=== PATIENT | male | born 1965 | race Caucasian/White ===

== ENCOUNTER 2016-06-12 19:07 | Emergency (ER) | payer OTHER ==
[~2016-06-12] VITALS: Ht 177.8 cm; Wt 101.0 kg
[~2016-06-12 19:07] MED LIST: ATOR20TA38 PO; BENZ100C70 PO; DOXY100T20 PO; FLUT16SP17 NASAL; LORA-407 PO; NAPR-688 PO
[2016-06-12 19:38] VITALS: Ht 177.8 cm; Wt 101.0 kg
[2016-06-12] MEDS ORDERED: IBUPROFEN 600 MG TAB PO ONE (20:30)
--- NOTE | 2016-06-12 20:44 | ERD ---
ER Documentation Chief Complaint Date/Time DATE: 06/12/16 TIME: 20:29 Chief Complaint Leg pain x8 days HPI 50-year-old male presents with chief complaint of right calf pain 3 days. Patient states that he suffered a knee injury at work 2 weeks ago, knee pain subsided he has since noticed intermittent pain in calf aggravated by walking. He denies swelling, erythema, fever, shortness of breath, back pain, limitations in range of motion and trauma. Denies recent travel. He is a non- smoker. He has been taking ibuprofen with relief. Currently rates his pain a 4 out of 10 in severity. ROS All systems reviewed and are negative except as per history of present illness. Medications Home Meds Active Scripts Ibuprofen* (Motrin*) 600 Mg Tab, 600 MG PO Q6, #30 TAB Prov:Astrid Vaca PA-C 06/12/16 Naproxen* (Naproxen*) 500 Mg Tablet, 500 MG PO BID, #20 TAB Prov:MINI BENZ DO 10/11/15 Benzonatate* (Tessalon Perle*) 100 Mg Capsule, 100 MG PO Q8H Y for COUGH, #20 CAP Prov:MINI BENZ DO 10/11/15 Doxycycline Hyclate* (Doxycycline Hyclate*) 100 Mg Tablet.dr, 100 MG PO BID for 10 Days, TAB Prov:MINI BENZ DO 10/11/15 Reported Medications Fluticasone Propionate* (Fluticasone Propionate* Nasal) 50 Mcg/[place] - 16 Gm [place].susp, 1 SPRAY NASAL DAILY, #1 BOTTLE TO EACH NOSTRIL 10/11/15 Atorvastatin Calcium* (Atorvastatin Calcium*) 20 Mg Tablet, 20 MG PO QHS, #30 TAB 10/11/15 Loratadine (Claritin) 10 Mg Tablet, 10 MG PO DAILY 07/05/10 Allergies Allergies: Coded Allergies: No Known Drug Allergies (Verified Allergy, Mild, 10/11/15) PMhx/Soc History of Surgery: Yes (appendectomy) Hx Neurological Disorder: No Hx Respiratory Disorders: No Hx Cardiac Disorders: No Hx Psychiatric Problems: No Hx Miscellaneous Medical Probl: No Hx Alcohol Use: No Hx Substance Use: No Hx Tobacco Use: No Smoking Status: Never smoker Physical Exam Vitals Vital Signs Date Time Temp Pulse Resp B/P Pulse Ox O2 Delivery O2 Flow Rate FiO2 06/12/16 22:53 98.0 78 18 150/98 98 06/12/16 19:38 97.7 72 18 141/81 98 Physical Exam GENERAL: Non-toxic. No apparent signs of distress. LUNGS: Clear to auscultation. No accessory muscle use. No wheezing, no crackles. No signs or symptoms of respiratory distress. HEART: Regular rate and rhythm. No murmurs, clicks, rubs or gallops. 2+ dorsalis pedis pulse bilaterally. BACK: No midline tenderness, no costovertebral tenderness. EXTREMITIES: No peripheral cyanosis or edema. No focal pain or notable trauma. Full range of motion. Good capillary refill. No tenderness to palpation of lower extremities, no erythema or ecchymosis, no edema. NEURO: The patient moves all 4 extremities with 5/5 strength. Cranial nerves are grossly intact. Normal mental status for age. Good muscle tone. Negative straight leg raise bilaterally. SKIN: There is no apparent rash, petechiae, erythema or swelling. Good skin turgor. Results 24 hrs Current Medications Medications (Trade) Dose Ordered Sig/Rosita Route PRN Reason Start Time Stop Time Status Last Admin Dose Admin Ibuprofen (Motrin) 600 mg ONCE ONCE PO 06/12/16 20:30 06/12/16 20:33 DC 06/12/16 20:34 Procedures/MDM Patient presented with chief complaint of right calf pain, denies trauma or recent injury. There are no physical exam findings of swelling, erythema, or tenderness to palpation. I explained to the patient that would be ordering an ultrasound to rule out DVT. Patient given 600 mg of ibuprofen for pain relief while waiting for ultrasound. Awaiting results prior to further management. Venous ultrasound right lower extremity: IMPRESSION: No sonographic evidence for right lower extremity deep venous thrombosis. Ultrasound was normal, this time low suspicion for DVT, fracture, sciatica and cellulitis. Patient symptoms are likely due to claudication pain versus muscle strain. Advised to keep legs elevated, avoid long periods of walking, and take NSAIDs for pain relief. Patient stable for discharge and outpatient management. Strict return precautions discussed. Advised to follow with PCP in 1-2 days. Departure Diagnosis: Primary Impression: Pain of right leg Additional Impression: Muscle strain Condition: Good Astrid Vaca PA-C Jun 12, 2016 20:40
[2016-06-12] MEDS ORDERED: IBUP-1542 PO (22:28)
--- NOTE | 2016-06-12 22:49 | RADRPT ---
PROCEDURE: US Lower extremity Venous. CLINICAL INDICATION: Right calf pain. TECHNIQUE: Multiple sonographic images of the bilateral lower extremity deep venous system was obt ained utilizing grayscale, color-flow, compressive sonography and doppler imaging with augmentation. The images were reviewed on a PACS workstation. COMPARISON: None. FINDINGS: There is normal compressibility and flow within the right common femoral, deep femoral, superficial femoral, posterior tibial, peroneal and popliteal veins. IMPRESSION: No sonographic evidence for right lower extremity deep venous thrombosis. RPTAT:AAJJ Physician Vicente Date Time Electronically viewed and signed by Physician Vicente on 06/12/2016 22:49 REUBEN/
[2016-06-12 22:53] VITALS: BP 150/98; PULSE 78; RESP 18; TEMP 98
== END 2016-06-12 23:02 | disposition home or self-care (01) ==
LOC: FTE 19:07
DX: S86.911A Strain of unspecified muscle(s) and tendon(s) at lower leg level, right leg, initial encounter (principal); X58.XXXA Exposure to other specified factors, initial encounter; Y92.89 Other specified places as the place of occurrence of the external cause
CPT/HCPCS: 93971; Z7502; Z7610

== ENCOUNTER 2016-12-02 18:14 | Emergency (ER) | payer OTHER ==
[~2016-12-02] VITALS: Ht 177.8 cm; Wt 101.5 kg
[~2016-12-02 18:14] MED LIST changes: +IBUP-1542 PO
[2016-12-02 18:24] VITALS: Ht 177.8 cm; Wt 101.5 kg
[2016-12-02] MEDS ORDERED: SULF1TAB31 PO (19:43)
--- NOTE | 2016-12-02 19:46 | ERA ---
ER Documentation Chief Complaint Date/Time DATE: 12/02/16 TIME: 19:44 Chief Complaint WOUND TO RIGHT KNEE AND LEG FOR ONE WEEK HPI Otherwise healthy 51-year-old male presented with a chief complaints of abrasion. Patient was seen in the ED given a tetanus shot without antibiotics 1 week ago. Patient is worried that it will become infected. Denies any discharge, fever, increased pain, foul odor, or other new or progressive symptoms. Patient has no other complaints and describes no other associated manifestations. Nursing notes have been reviewed and are consistent with history given. ROS All systems reviewed and are negative except as per history of present illness. Medications Home Meds Active Scripts Sulfamethoxazole/Trimethoprim* (Bactrim Ds* Tablet) 1 Each Tablet, 1 TAB PO DAILY, #7 TAB Prov:NIRU AN PA-C 12/02/16 Ibuprofen* (Motrin*) 600 Mg Tab, 600 MG PO Q6, #30 TAB Prov:Astrid Vaca PA-C 06/12/16 Naproxen* (Naproxen*) 500 Mg Tablet, 500 MG PO BID, #20 TAB Prov:MINI BENZ DO 10/11/15 Benzonatate* (Tessalon Perle*) 100 Mg Capsule, 100 MG PO Q8H Y for COUGH, #20 CAP Prov:MINI BENZ DO 10/11/15 Doxycycline Hyclate* (Doxycycline Hyclate*) 100 Mg Tablet.dr, 100 MG PO BID for 10 Days, TAB Prov:MINI BENZ DO 10/11/15 Reported Medications Fluticasone Propionate* (Fluticasone Propionate* Nasal) 50 Mcg/[place] - 16 Gm [place].susp, 1 SPRAY NASAL DAILY, #1 BOTTLE TO EACH NOSTRIL 10/11/15 Atorvastatin Calcium* (Atorvastatin Calcium*) 20 Mg Tablet, 20 MG PO QHS, #30 TAB 10/11/15 Loratadine (Claritin) 10 Mg Tablet, 10 MG PO DAILY 07/05/10 Allergies Allergies: Coded Allergies: No Known Drug Allergies (Verified Allergy, Mild, 10/11/15) PMhx/Soc History of Surgery: Yes (appendectomy) Hx Neurological Disorder: No Hx Respiratory Disorders: No Hx Cardiac Disorders: No Hx Psychiatric Problems: No Hx Miscellaneous Medical Probl: No Hx Alcohol Use: No Hx Substance Use: No Hx Tobacco Use: No Physical Exam Vitals Vital Signs Date Time Temp Pulse Resp B/P Pulse Ox O2 Delivery O2 Flow Rate FiO2 12/02/16 18:24 98.1 84 18 143/89 97 Physical Exam Const: Healthy-appearing. Well-nourished. Well-developed. No acute distress. Skin: Abrasion on the right lower extremity. No discharge. No erythema or warmth. No petechiae or rashes. No ulcer, induration, jaundice. Good turgor. Ext: No cyanosis or edema noted. Head: Normocephalic. As noted in skin exam. Eyes: Non-injected; No scleral erythema, or discharge. EOMI and ARMANI bilaterally. Ears: Normal External Ears, EACs clear, TM normal bilaterally without erythema. Nose: Normal nose without discharge, septal deviation, or sinus tenderness. Oral: No oral edema visualized. Mucous membranes moist and pink. Neck: No cervical lymphadenopathy, or masses. Trachea midline. Supple ~ No meningismus. Pulm: Good air movement in upper and lower respiratory tracts. No dyspnea, stridor, tripoding or drooling. Clear to auscultation bilaterally. Cardio: Regular rate and rhythm. No JVD grossly observed. Radial and posterior tibial pulses 2+ bilaterally. No cyanosis. Capillary refill less than 2 seconds. Abd: Soft, non tender, non distended. No guarding. Normal bowel sounds. MS: Normal motor strength, normal tone with gross examination. Back: No midline or flank tenderness. Neur: Neurovascularly intact bilaterally. Awake, alert and oriented x3. Procedures/MDM Otherwise healthy well-appearing 51-year-old male presented with a chief complaint of abrasion patient seen 1 week ago as described in history and physical examination. Tetanus status up-to-date. Wanting antibiotics is afraid that it will become infected. No signs of infection at this time. However I will give antibiotics to to his requests. No suspicion for systemic involvement, serious pressure on illness, or infection of the site. Neurovascularly intact.I have discussed with him wound care as well as discharge instructions and return precautions. I have spoke with the patient regarding their condition and future management. They have verbally responded that they understand their status and treatment plan. The patients vitals are stable, and their current condition is appropriate for discharge. The patient will be given discharge instructions with return precautions. Departure Diagnosis: Primary Impression: Encounter for wound re-check Condition: Stable Patient Instructions: Wound Care Additional Instructions: Sylvia un seguimiento con smith PCP dentro de los prximos 1-3 reyes para elmer evaluaci n ms completa y elmer posible derivacin a un especialista. Devuelva el departamento de emergencia inmediatamente si los sntomas empeoran o cambian. Si tiene alguna pregunta con respecto a los medicamentos, consulte con smith farmac utico o con nosotros antes de salir. Si se producen reacciones adversas mientras nery laurence medicamentos, suspenda el tratamiento y regrese inmediatamente al servicio de urgencias. [place] laurence medicamentos segn las indicaciones y complete el curso completo del tratamiento. NIRU AN PA-C Dec 02, 2016 19:46
== END 2016-12-02 20:11 | disposition home or self-care (01) ==
LOC: FTE 18:14
DX: Z48.01 Encounter for change or removal of surgical wound dressing (principal)
CPT/HCPCS: 99283

== ENCOUNTER 2018-07-11 20:06 | Emergency (ER) | payer OTHER ==
[~2018-07-11] VITALS: Ht 170.2 cm; Wt 75.0 kg
[~2018-07-11 20:06] MED LIST changes: +BENZ-6 PO; -BENZ100C70 PO; +SULF1TAB31 PO
[2018-07-11 20:10] VITALS: BP 138/88; PULSE 74; RESP 18; Ht 170.2 cm; Wt 75.0 kg
[2018-07-11] MEDS ORDERED: PRED20TA PO (20:35)
[2018-07-11] MEDS ORDERED: D-ME473S2 PO (20:35)
[2018-07-11] MEDS ORDERED: FLUT9.9S NASAL (20:35)
--- NOTE | 2018-07-11 20:37 | ERD ---
ER Documentation Chief Complaint Chief Complaint sinus pain. congestion states ears are closed HPI Patient evaluated in ED 3. 52-year-old male presents with pain in the maxillary sinuses, nasal congestion bilateral ear congestion for last 1-2 days. Denies fevers, productive cough, bleeding or discharge. He has a history of possible allergic rhinitis. ROS All systems reviewed and are negative except as per history of present illness. Medications Home Meds Active Scripts Dextromethorphan Hb-Promethazine Hcl* (Promethazine DM* Syrup) 473 Ml Syrup, 5 ML PO Q6 PRN for COUGH for 5 Days, ML Prov:DI SLATER MD 07/11/18 Fluticasone Propionate (Flonase Allergy Relief) 9.9 Ml [place].susp, 1 SPRAY NASAL DAILY for 10 Days, #1 BOTTLE TO EACH NOSTRIL Prov:DI SLATER MD 07/11/18 Prednisone* (Prednisone*) 20 Mg Tab, 40 MG PO DAILY for 4 Days, TAB Prov:DI SLATER MD 07/11/18 Sulfamethoxazole/Trimethoprim* (Bactrim Ds* Tablet) 1 Each Tablet, 1 TAB PO DAILY, #7 TAB Prov:NIRU AN PA-C 12/02/16 Ibuprofen* (Motrin*) 600 Mg Tab, 600 MG PO Q6, #30 TAB Prov:Astrid Vaca PA-C 06/12/16 Naproxen* (Naproxen*) 500 Mg Tablet, 500 MG PO BID, #20 TAB Prov:MINI BENZ DO 10/11/15 Benzonatate* (Tessalon Perle*) 100 Mg Capsule, 100 MG PO Q8H PRN for COUGH, #20 CAP Prov:MINI BENZ DO 10/11/15 Doxycycline Hyclate* (Doxycycline Hyclate*) 100 Mg Tablet.dr, 100 MG PO BID for 10 Days, TAB Prov:MINI BENZ DO 10/11/15 Reported Medications Fluticasone Propionate* (Fluticasone Propionate* Nasal) 50 Mcg/[place] - 16 Gm [place].susp, 1 SPRAY NASAL DAILY, #1 BOTTLE TO EACH NOSTRIL 10/11/15 Atorvastatin Calcium* (Atorvastatin Calcium*) 20 Mg Tablet, 20 MG PO QHS, #30 TAB 10/11/15 Loratadine (Claritin) 10 Mg Tablet, 10 MG PO DAILY 07/05/10 Allergies Allergies: Coded Allergies: No Known Drug Allergies (Verified Allergy, Mild, 10/11/15) PMhx/Soc History of Surgery: Yes (appendectomy) Anesthesia Reaction: No Hx Neurological Disorder: No Hx Respiratory Disorders: No Hx Cardiac Disorders: No Hx Psychiatric Problems: No Hx Miscellaneous Medical Probl: No Hx Alcohol Use: No Hx Substance Use: No Hx Tobacco Use: No FmHx Family History: No diabetes, No coronary disease, No other Physical Exam Vitals Vital Signs Date Temp Pulse Resp B/P (MAP) Pulse Ox O2 O2 Flow FiO2 Time Delivery Rate 07/11/18 97.6 74 18 138/88 99 20:10 (105) Physical Exam Const: No acute distress Head: Atraumatic Eyes: Normal Conjunctiva ENT: Normal External Ears, Nose and Mouth. TMs clear fluid and decreased light reflex. Clear nasal discharge. Minimal maxillary sinus tenderness. Neck: Full range of motion. No meningismus. Resp: Clear to auscultation bilaterally Cardio: Regular rate and rhythm, no murmurs Abd: Soft, non tender, non distended. Normal bowel sounds Skin: No petechiae or rashes Back: No midline or flank tenderness Ext: No cyanosis, or edema Neur: Awake and alert Psych: Normal Mood and Affect Procedures/MDM Patient presents with nasal congestion bilateral ear discomfort with signs of serous otitis. Will treat with promethazine, Flonase, short course prednisone, primary care follow-up and return precautions. He has no signs of mastoiditis, bacterial sinusitis, airway obstruction, hypoxemia, respiratory distress. The patient was stable with no new complaints during the ER course. Clinically, there is no current evidence to suggest meningitis, sepsis, acute abdomen, pneumonia, stroke, acute coronary syndrome, pulmonary embolism, aortic dissection or any other emergent condition appearing to require further evaluation or hospitalization. Patient counseled regarding my diagnostic impression and care plan. Prior to discharge all questions answered. Pt agrees with treatment plan and understands strict return precautions. Pt is instructed to follow up with primary care provider within 24-48 hours. Precautionary instructions provided including instructions to return to the ER if not improving or for any worsening or changing symptoms or concerns. Departure Diagnosis: Primary Impression: Ear pain Laterality: bilateral Qualified Codes: H92.03 - Otalgia, bilateral Condition: Stable Patient Instructions: Sinusitis, No Abx [facility] Usted se faustin hecho un examen mdico de control que le indica que no est en elmer condicin que requiera tratamiento urgente en el Departamento de Emergencia. Un estudio ms profundo y el tratamiento de smith condicin pueden esperar sin ningn riesgo hasta que usted sea atendida/o en el consultorio de smith mdico o elmer clnica. Es responsabilidad suya arreglar elmer nika para el seguimiento del adam. MANEJO DE CONDICIONES NO URGENTES EN EL FUTURO 1) Si usted tiene un mdico de atencin primaria: Usted debera llamar a smith mdico de atencin primaria antes de venir al departamento de emergencia. Despus de las horas de consultorio, smith doctor o smith asociado/a est disponible por telfono. El mdico o enfermero de sallie en el servicio telefnico puede asesorarle por ro medio para atender el problema, o adam contrario se puede programar elmer nika. 2) Si usted no tiene un mdico de atencin primaria: Llame al mdico o clnica de referencia que aparece abajo hunter las horas de consultorio para hacer elmer nika para que le vean. CLINICAS: [facility] [phone] [id number] [facility] [phone] [id number] [facility] [phone] [id number] [place] [address] [facility] [phone] [id number] [place] [id number] [phone] [facility]. [phone] [address] Additional Instructions: Cheque otro vez con smith doctor primario en el proximo hayden or regresa para mas o nueva simptomas. DI SLATER MD Jul 11, 2018 20:37
== END 2018-07-11 21:01 | disposition home or self-care (01) ==
LOC: E/R 20:06
DX: H92.03 Otalgia, bilateral (principal)
CPT/HCPCS: 99283